=== PATIENT | male | born 2000 | race Caucasian/White ===

== ENCOUNTER 2019-09-10 23:55 | Emergency (ER) | payer OTHER ==
[2019-09-11] MEDS ORDERED: Adacel (T-DAP) 0.5 ML SYRINGE ONE (01:04)
[2019-09-11] MEDS ORDERED: Lidocaine 1% (PF) 30 ML VIAL ONE (01:04)
--- NOTE | 2019-09-11 08:49 | RAD ---
RIGHT THUMB 3 VIEWS: Date: 09/11/2019 PROVIDED CLINICAL HISTORY: Pain status post injury. FINDINGS: Evidence for laceration involving the soft tissues adjacent to the terminal tuft of the thumb distal phalanx. No evidence for radiopaque foreign body. No evidence for fracture or other acute osseous abn ormality. If there is persistent clinical concern, conservative management and follow-up imaging are advised. IMPRESSION: As above. POS: IVÁN
== END 2019-09-11 01:39 | disposition home or self-care (01) ==
LOC: ERS 23:55
DX: S61.111A Laceration without foreign body of right thumb with damage to nail, initial encounter (principal); W23.0XXA Caught, crushed, jammed, or pinched between moving objects, initial encounter
CPT/HCPCS: 12001; 90471; 90715; J2001